=== PATIENT | male | born 1990 | race Caucasian/White ===

== ENCOUNTER 2016-10-21 21:25 | Emergency (ER) | payer OTHER ==
[2016-10-21 21:31] VITALS: O2SAT 97
[2016-10-21] MEDS ORDERED: solu-MEDROL 125 MG IV ONE (21:41)
[2016-10-21] MEDS ORDERED: DUONEB 0.5-3 MG/3 ml Neb IH ONE ×2 (21:41→21:49)
[2016-10-21] MEDS ORDERED: solu-MEDROL 125 MG ONE (21:48)
--- NOTE | 2016-10-21 21:48 | ERPHSYRPT ---
- History of Present Illness Time Seen by Provider: 10/21/16 21:39 Source: patient Exam Limitations: no limitations Patient Subjective Stated Complaint: PT STATES HE HAS BEEN SICK FOR APPROX 2 WEEKS, COUGHING. STATES COUGHING AND SHORTNESS OF BREATH HAS INCREASED Triage Nursing Assessment: PT ALERT AND ORIENTED. ANSWERS QUESTIONS APPROP. PT AMBULATORY WITH STEADY GAIT NOTED. RESPIRATIONS NONLABORED. LUNG SOUNDS WITH ISNP AND EXP WHEEZING HEARD THROUGHOUT. PT C/O SHORTNESS OF BREATH WITH EXERTION. Physician History: This is a 26-year-old white male arrives with complaint of cough, productive of green sputum and wheezing shortness of breath pain with breathing and back and chest symptoms for 2 weeks. Patient denies any fevers no nausea no vomiting. Past medical history patient denies Past surgical history includes knee surgery 4, left ear surgery. Timing/Duration: other (symptoms for one month) Modifying Factors: Improves With: nothing Associated Symptoms: shortness of breath, cough, chest pain (pain and chest and back with coughing), No nausea, No vomiting, No abdominal pain, No heartburn, No diaphoresis, No chills, No fever, No headaches, No loss of appetite, No malaise, No rash, No syncope, No seizure, No weakness Allergies/Adverse Reactions: shellfish derived Allergy (Verified 10/21/16 21:39) Home Medications: No Home Meds 1 ea UD 10/21/16 [History] Hx Tetanus, Diphtheria Vaccination/Date Given: Yes Hx Influenza Vaccination/Date Given: No Hx Pneumococcal Vaccination/Date Given: No Immunizations Up to Date: Yes - Review of Systems Constitutional: No Fever, No Chills Eyes: No Symptoms Ears, Nose, & Throat: No Symptoms Respiratory: Cough, Dyspnea, Wheezing, No Cyanosis, No Dyspnea on Exertion ([place]AG[place]ERRE) , No Stridor Cardiac: Chest Pain (pain in chest with coughing) Abdominal/Gastrointestinal: No Abdominal Pain, No Nausea, No Vomiting, No Diarrhea, No Constipation, No Hematemesis, No Hematochezia, No Melena, No Dysphagia, No Appetite Changes Genitourinary Symptoms: No Dysuria Musculoskeletal: Back Pain (pain in back with coughing) Skin: No Rash Neurological: No Dizziness, No Focal Weakness, No Sensory Changes Psychological: No Symptoms Endocrine: No Symptoms All Other Systems: Reviewed and Negative - Past Medical History Pertinent Past Medical History: No 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 - Past Surgical History Past Surgical History: Yes Musculoskeletal: Orthopedic Surgery Other Surgical History: KNEE SURGERY X4 - Social History Smoking Status: Never smoker Exposure to second hand smoke: Yes Drug Use: none Patient Lives Alone: No - Nursing Vital Signs Nursing Vital Signs: Initial Vital Signs Temperature 97.4 F Temperature Source Oral Pulse Rate 102 Respiratory Rate 17 Blood Pressure [] 137/90 Pain Intensity 6 - Physical Exam General Appearance: mild distress Eye Exam: PERRL/EOMI, eyes nml inspection Ears, Nose, Throat Exam: normal ENT inspection, TMs normal, pharynx normal, moist mucous membranes Neck Exam: normal inspection, non-tender, supple, full range of motion Respiratory Exam: wheezing (patient with scattered wheezes) Cardiovascular Exam: regular rate/rhythm, normal heart sounds, normal peripheral pulses Gastrointestinal/Abdomen Exam: soft, normal bowel sounds, No tenderness, No mass Back Exam: normal inspection, normal range of motion, No CVA tenderness, No vertebral tenderness Extremity Exam: normal inspection, normal range of motion, pelvis stable Neurologic Exam: alert, oriented x 3, cooperative, normal mood/affect, nml cerebellar function, nml station & gait, sensation nml, No motor deficits Skin Exam: normal color, warm, dry, No rash Lymphatic Exam: No adenopathy SpO2 Interpretation: normal (97%) SpO2: 97 Oxygen Delivery: Room Air - Course Nursing assessment & vital signs reviewed: Yes EKG Interpreted by Me: RATE (101 bpm), NORMAL AXIS, Other (EKG: Normal sinus rhythm 101 bpm normal axis, no acute ST or T wave changes essentially normal EKG ) - Radiology Exams Chest X-ray Interpretation: Interpreted by me, Other (chest x-ray hyperinflated otherwise no acute disease process noted) Ordered Tests: Active Orders 24 hr Category Date Time Status CHEST 1 VIEW (PORTABLE) Stat Exams 10/21/16 21:42 Ordered Respiratory Nebulizer STAT RT 10/21/16 21:42 Completed Medication Summary Discontinued Medications Generic Name Dose Route Start Last Admin Trade Name Freq PRN Reason Stop Dose Admin Albuterol/Ipratropium 3 ml 10/21/16 21:41 10/21/16 21:50 Duoneb 0.5-3 Mg/3 Ml Neb IH 10/21/16 21:42 3 ml STAT ONE Administration Albuterol/Ipratropium Confirm 10/21/16 21:49 Duoneb 0.5-3 Mg/3 Ml Neb Administered 10/21/16 21:50 Dose 3 ml IH .STK-MED ONE Methylprednisolone Sodium Succinate 125 mg 10/21/16 21:41 10/21/16 21:49 Solu-Medrol 125 Mg IV 10/21/16 21:42 125 mg STAT ONE Administration Methylprednisolone Sodium Succinate Confirm 10/21/16 21:48 Solu-Medrol 125 Mg Administered 10/21/16 21:49 Dose 125 mg .ROUTE .STK-MED ONE - Progress Progress: improved Progress Note: 10/21/16 21:47 26-year-old white male arrives with complaint of shortness of breath cough productive of green sputum pain in the back and chest with breathing symptoms for a month. He denies any fevers states he is not on any medications he was review of inspection shows the patient has recently been on some salt last prescribed July 17, 2016. On physical examination patient does have wheezes with breathing. Will go ahead and give patient DuoNeb treatments Solu-Medrol do an x-ray of his chest. 10/21/16 22:10 Patient better after DuoNeb treatment. Still a few wheezes but markedly reduced wheezing and breathing easier. Chest x-ray hyperexpanded chest otherwise negative EKG essentially normal. Will discharge with Zithromax albuterol inhaler, and tapering steroids - Departure Time of Disposition: 22:11 Departure Disposition: Home Clinical Impression: Bronchitis with bronchospasm Condition: Fair Critical Care Time: No Additional Instructions: Return home. Plenty of fluids. Zithromax Z-SANDOVAL as directed. Albuterol inhaler 2 puffs every 4 hours as needed. Tapering dose of prednisone as directed. Follow-up with your family doctor. Return for acute distress or for severe symptoms. Prescriptions: Albuterol Common Canister [Proventil Common Canister] 2 puff IH Q4-6HPRN PRN #1 puff PRN Reason: shortness of breath, wheezing Azithromycin 250 mg [Zithromax 250 MG TABLET] 0 mg PO ZPACK #6 tablet
[2016-10-21] MEDS ORDERED: Zithromax 250 MG TABLET PO ONE (22:15)
[2016-10-21] MEDS ORDERED: Zithromax 250 MG TABLET ONE (22:19)
[2016-10-21] MEDS ORDERED: Ventolin Hfa MDI IH ONE ×2 (22:23→22:30)
[2016-10-21 22:43] VITALS: BP 120/74; PULSE 94
--- NOTE | 2016-10-22 08:38 | XRAY ---
Indication: Chest pain and difficulty breathing. Cough. Comparison: March 25, 2007. Portable apical lordotic chest demonstrates normal heart, lungs, and bony thorax.
== END 2016-10-21 22:43 | disposition home or self-care (01) ==
LOC: ED 21:25
DX: J20.9 Acute bronchitis, unspecified (principal)
CPT/HCPCS: 36000; 71010; 93005; 94640; 96374; 99284; J2930; A9270-GY

== ENCOUNTER 2018-12-10 12:40 | Emergency (ER) | payer OTHER ==
[2018-12-10] MEDS ORDERED: BACIGUENT PACKET TP ONE (13:41)
[2018-12-10] MEDS ORDERED: XYLOCAINE 1% HCL 20 ML MDV IJ ONE (13:41)
--- NOTE | 2018-12-10 13:47 | ERPHSYRPT ---
- History of Present Illness Time Seen by Provider: 12/10/18 13:41 Source: patient Exam Limitations: no limitations Patient Subjective Stated Complaint: pt here for laceration to right hand 2 cm in length. he was replacing glass when it broke Triage Nursing Assessment: pt alert, walked in, resp easy, skin w/d/p. has 2cm laceration to right hadn, no bleeding, able to make and fist but states tip of finger is numb Physician History: 28-year-old white male arrives with complaint of laceration overlying the ulnar aspect of his right proximal index finger at the MCP joint region dorsally symptoms since 12:30. Patient states that he was putting in some glass and he cut his finger. Prakash stated that when he did so he felt numbness radiating up his right arm. He states he has some numbness in his right index finger on the ulnar aspect. Is not having any movement problems or any problems gripping of the right index finger. Patient denies any other complaints. Past medical history includes high blood pressure. Past surgical history includes left knee surgery left ear surgery. Occurred: just prior to arrival (12:30 PM) Method of Injury: other (lacerated on broken glass) Quality: constant Severity of Pain-Current: mild Extremities Pain Location: 2nd finger: left Modifying Factors: Improves With: nothing Associated Symptoms: other (patient states his lumbar aspect of his right index finger feels numb) Allergies/Adverse Reactions: shellfish derived Allergy (Verified 12/10/18 13:03) Home Medications: No Reportable Medications [No Reported Medications] 12/10/18 [History] Hx Tetanus, Diphtheria Vaccination/Date Given: Yes (less than 5 years) Hx Influenza Vaccination/Date Given: No Hx Pneumococcal Vaccination/Date Given: No Immunizations Up to Date: Yes - Review of Systems Constitutional: No Fever, No Chills Eyes: No Symptoms Ears, Nose, & Throat: No Symptoms Respiratory: No Cough, No Dyspnea Cardiac: No Chest Pain, No Edema, No Syncope Abdominal/Gastrointestinal: No Abdominal Pain, No Nausea, No Vomiting, No Diarrhea Genitourinary Symptoms: No Dysuria Musculoskeletal: No Back Pain, No Neck Pain Skin: Other (laceration right index finger dorsally) Neurological: Other (left index finger feels normal dorsally on the ulnar aspect ) Psychological: No Symptoms Endocrine: No Symptoms All Other Systems: Reviewed and Negative - Past Medical History Pertinent Past Medical History: Yes Neurological History: Seizures Cardiac History: Hypertension Respiratory History: No Pertinent History Endocrine Medical History: No Pertinent History Musculoskeletal History: Arthritis, Fractures 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 - Past Surgical History Past Surgical History: Yes Musculoskeletal: Orthopedic Surgery Other Surgical History: left knee, left ear - Social History Smoking Status: Never smoker Exposure to second hand smoke: No Drug Use: none Patient Lives Alone: No - Nursing Vital Signs Nursing Vital Signs: Initial Vital Signs Temperature 98.3 F 12/10/18 12:57 Pulse Rate 91 H 12/10/18 12:57 Respiratory Rate 16 12/10/18 12:57 Blood Pressure 129/82 12/10/18 12:57 O2 Sat by Pulse Oximetry 97 12/10/18 12:57 Pain Scale Pain Intensity 0 - Physical Exam General Appearance: alert Eyes, Ears, Nose, Throat Exam: moist mucous membranes Neck Exam: non-tender, supple Cardiovascular/Respiratory Exam: chest non-tender, normal breath sounds, regular rate/rhythm, no respiratory distress Abdominal Exam: non-tender, No guarding Back Exam: normal inspection, No vertebral tenderness Shoulder Exam: normal inspection, non-tender, no evidence of injury, normal ROM Elbow/Forearm Exam: normal inspection, non-tender, no evidence of injury, normal ROM Wrist Exam: normal inspection, non-tender, no evidence of injury, normal ROM Hand Exam: No normal inspection (2 cm laceration right hand on the ulnar aspect of the right index finger at the MCP joint. Full range of motion to all fingers good capillary refill all fingers sensation intact to all fingers this includes 2 point discrimination and fine touch) DTR - Upper Extremity Exam: tricep (R): 2+, tricep (L): 2+ Neuro/Tendon Exam: normal sensation, normal motor functions Mental Status Exam: alert, oriented x 3, cooperative SpO2 Interpretation: normal (97%) SpO2: 97 - Course Nursing assessment & vital signs reviewed: Yes - Radiology Exams Left Hand X-ray Interpretation: Discussed w/ radiologist (x-ray left hand: Impression bring base of the fourth finger and posterior left second MCP soft tissue swelling. No other bony, articular, or soft tissue abnormalities) Ordered Tests: Active Orders 24 hr Category Date Time Status Prepare for Sutures STAT Care 12/10/18 13:41 Active Sutures STAT Care 12/10/18 13:41 Active Wound Care STAT Care 12/10/18 13:41 Active HAND (MINIMUM 3 VIEWS) Stat Exams 12/10/18 13:40 Completed Medication Summary Discontinued Medications Generic Name Dose Route Start Last Admin Trade Name Declan PRN Reason Stop Dose Admin Bacitracin Zinc 0.9 gm 12/10/18 13:41 12/10/18 14:12 Baciguent Packet TP 12/10/18 13:42 0.9 gm STAT ONE Administration Bacitracin Zinc Confirm 12/10/18 14:05 Baciguent Packet Administered 12/10/18 14:06 Dose 1 gm .ROUTE .STK-MED ONE Lidocaine HCl 5 ml 12/10/18 13:41 12/10/18 14:13 Xylocaine 1% Hcl 20 Ml Mdv IJ 12/10/18 13:42 5 ml STAT ONE Administration Lidocaine HCl Confirm 12/10/18 14:05 Xylocaine 1% Hcl 20 Ml Mdv Administered 12/10/18 14:06 Dose 5 ml .ROUTE .STK-MED ONE - Progress Progress: improved Progress Note: 12/10/18 13:45 This is a 28-year-old white male he arrives with complaint of laceration to the right index finger which is approximately 2 cm it is at this level of the second MCP joint dorsally and towards the ulnar aspect of the right index finger. Patient has full range of motion of the right index finger. Patient really ports a sense of numbness of the right index finger however 2 point discrimination and soft touch are intact to the left index finger. Will go ahead and obtain x-ray of the right index finger plan to repair area using sutures. The patient's tetanus is up-to-date 12/10/18 14:56 Laceration repair right index finger. Laceration sterilely prepped and draped. Anesthetized with 1% lidocaine. Laceration repaired with 6 5.0 interrupted sutures. Bacitracin and sterile dressing were applied by the nurse. - Departure Departure Disposition: Home Clinical Impression: Laceration of right hand Qualifiers: Encounter type: initial encounter Foreign body presence: without foreign body Qualified Code(s): S61.411A - Laceration without foreign body of right hand, initial encounter Condition: Fair Critical Care Time: No Referrals: LAURA MARQUES [Primary Care Provider] - Instructions: Laceration Repair With Stitches (DC) Additional Instructions: Return home. Keep area clean and dry. Bacitracin to area until healed. Sutures out in 5-7 days. Followup with your family Dr. or return if signs of infection or problems. Return for acute distress or for severe symptoms.
--- NOTE | 2018-12-10 14:04 | XRAY ---
Indication: 2nd MCP laceration. Comparison: November 29, 2006. 3 views of the right hand demonstrates ring base of the 4th finger and posterior 2nd MCP soft tissue swelling. No other bony, articular, or soft tissue abnormalities.
[2018-12-10] MEDS ORDERED: XYLOCAINE 1% HCL 20 ML MDV ONE (14:05)
[2018-12-10] MEDS ORDERED: BACIGUENT PACKET ONE (14:05)
[2018-12-10 14:12] VITALS: BP 125/88
[2018-12-10 15:10] VITALS: PULSE 70; O2SAT 98
== END 2018-12-10 15:10 | disposition home or self-care (01) ==
LOC: ED 12:40
DX: S61.210A Laceration without foreign body of right index finger without damage to nail, initial encounter (principal); W25.XXXA Contact with sharp glass, initial encounter
CPT/HCPCS: 12001; 73130; 96372; 99284; A9270-GY